=== PATIENT | male | born 1960 | race Caucasian/White ===

== ENCOUNTER → 2017-07-13 | Outpatient (CLI) | payer MEDICARE, OTHER ==
--- NOTE | 2017-07-13 15:58 | RAD ---
Renal ultrasound, 07/13/2017: History: Microscopic hematuria The right kidney measures 9.8 cm in length while the left kidney measures 9.9 cm. There is no evidence of hydronephrosis or a renal mass. The renal parenchymal echogenicity is within normal limits. Limited views of urinary bladder show no abnormality. A post voiding view demonstrates approximately 15 cc of residual urine in the bladder. IMPRESSION: No significant renal abnormality is detected.
== END | disposition home or self-care (01) ==
LOC: US 12:54
PROVIDERS: ATTEND Urology
DX: R31.1 Benign essential microscopic hematuria (principal)
CPT/HCPCS: 76770

== ENCOUNTER 2020-07-06 00:23 | Emergency (ER) | payer MEDICARE, MEDICAID ==
[~2020-07-06] VITALS: Ht 172.7 cm; Wt 90.0 kg
[2020-07-06 00:41] VITALS: BP 163/100
--- NOTE | 2020-07-06 00:51 | PHYS DOC ---
Past History Past Medical History: Other Additional Past Medical Histor: INTELLECTUAL DEFICITS, COLON POLYP Past Surgical History: Other Additional Past Surgical Histo: ARM Alcohol Use: None Adult General Chief Complaint Chief Complaint: HEAD INJURY/TRAUMA HPI HPI Patient is a otherwise healthy 59-year-old male who presents after a fall. States he was carrying his dog down the stairs, take it outside and slipped at the bottom, fell forward and hit his head on the tile floor. Denies any loss of consciousness, headache, changes in vision, neck pain, chest pain, shortness of breath, abdominal pain, nausea, vomiting. Denies any numbness/weakness/tingling. Denies any trouble ambulating. States he feels well other than the bruise on his forehead. Review of Systems Review of Systems Review of systems otherwise unremarkable except noted in HPI Allergies Allergies Allergies Coded Allergies Type Severity Reaction Last Updated Verified Penicillins Allergy Intermediate 07/06/20 Yes Physical Exam Physical Exam Constitutional: Well developed, well nourished, no acute distress, non-toxic appearance. [] HENT: Contusion/hematoma on upper right forehead with some tenderness, bilateral external ears normal, no hemotympanum, oropharynx moist, no oral exudates, nose normal. [] Eyes: PERRLA, EOMI, conjunctiva normal, no discharge. [] Neck: Normal range of motion, no tenderness, supple, no stridor. [] Cardiovascular:Heart rate regular rhythm, no murmur [] Lungs & Thorax: Bilateral breath sounds clear to auscultation [] Abdomen: soft, no tenderness, no masses, no pulsatile masses. [] Skin: Warm, dry, no erythema, no rash. [] Back: No midline tenderness, no step-offs, deformities or bruising Extremities: No tenderness, ROM intact, Neurologic: Alert and oriented X 3, normal motor function, normal sensory function, no focal deficits noted. [] Psychologic: Affect normal, judgement normal, mood normal. [] Current Patient Data Vital Signs Vital Signs Date Time Temp Pulse Resp B/P (MAP) Pulse Ox O2 Delivery O2 Flow Rate FiO2 07/06/20 00:41 98.3 95 18 163/100 (121) 97 Room Air EKG EKG [] Radiology/Procedures Radiology/Procedures Imaging with no acute osseous abnormalities [] Heart Score C/O Chest Pain: No Risk Factors: Risk Factors: DM, Current or recent (<one month) smoker, HTN, HLP, family hist ory of CAD, obesity. Risk Scores: Risk Factors: DM, Current or recent (<one month) smoker, HTN, HLP, family history of CAD, obesity. Course & Med Decision Making Course & Med Decision Making Patient is a 59-year-old male who presents after a fall with a contusion on forehead Vital signs not concerning. Physical exam noted above. Patient alert and oriented no acute distress with no focal neurologic deficits. Not on blood thinners. Denied need for pain medications at this time. Given ice pack. Imaging with no acute osseous abnormalities. Discussed all findings with family. Advised on pain control at home. Advised to follow-up with primary care as needed. Gave return precautions to the ED. Family grateful, verbalized understanding and agreed with plan of discharge. [] Dragon Disclaimer Dragon Disclaimer This electronic medical record was generated, in whole or in part, using a voice recognition dictation system. Departure Departure: Impression: Primary Impression: Fall Additional Impression: Contusion of forehead Disposition: 01 HOME / SELF CARE / HOMELESS Condition: GOOD Referrals: CHARLENE SAUCEDO (PCP) Patient Instructions: Contusion, Fall Prevention and Home Safety Additional Instructions: Please read all the attached information. You can use Tylenol, ibuprofen and ice as needed at home for pain control. Please follow-up with primary care physician when you can to discuss ED visit and set up a follow-up as needed. Please come back to the emergency department with new or concerning symptoms as discussed. Problem Qualifiers CHRISTINE MCCULLOUGH MD Jul 06, 2020 00:51
--- NOTE | 2020-07-06 01:19 | RAD ---
STUDY: CT head without contrast INDICATION: Fall. Scalp contusion. COMPARISON: None. TECHNIQUE: Axial CT imaging through the head without the use of intravenous contrast. Sagittal and co joey reformats were obtained. One or more of the following individualized dose reduction techniques were utilized for this examinat ion: 1. Automated exposure control 2. Adjustment of the mA and/or kV according to patient size 3. Use of iterative reconstruction technique. FINDINGS: No acute intracranial hemorrhage. Maintained martines-white matter interface. No mass effect, midline sebastien ft or hydrocephalus. Right frontal scalp contusion extending downward along the medial aspect of the nasal bridge. No depr essed calvarial fracture. The visualized facial bones are intact. No CT abnormality of the globes or retrobulbar hematoma. IMPRESSION: Right frontal scalp contusion extending downward towards the nose. No associated depressed calvarial fracture or acute intracranial hemorrhage. Electronically signed by: RODNEY LEIGH MD (07/06/2020 1:17 AM) [facility]
== END 2020-07-06 01:30 | disposition home or self-care (01) ==
LOC: ER 00:23
DX: S00.83XA Contusion of other part of head, initial encounter (principal); Z88.0 Allergy status to penicillin; W18.39XA Other fall on same level, initial encounter; Y93.89 Activity, other specified; Y92.89 Other specified places as the place of occurrence of the external cause; Y99.8 Other external cause status
CPT/HCPCS: 70450; 99284-25